=== PATIENT | male | born 1965 | race Caucasian/White ===

== ENCOUNTER 2019-06-01 21:52 | Observation (INO) ==
[2019-06-02] MEDS ORDERED: Naloxone 0.4 MG/ML INJ IVP PRN (01:54)
[2019-06-02 02:50] LABS: Hematocrit 30.4 % (37.5-50.1); Mean Corpuscular HGB Conc 36.2 g/dL (31.6-35.5); Mean Corpuscular Hemoglobin 33.3 pg (28.0-33.3); Mean Corpuscular Volume 92.1 fL (83.0-100.0); Mean Platelet Volume 10.8 fL (9.4-12.4); Platelet Count 256 K/mcL (140-400); White Blood Count 10.9 K/mcL (4.3-11.1)
[2019-06-02 02:54] LABS: INR 1.1; Prothrombin Time 12.8 Seconds (9.4-12.1)
[2019-06-02 02:57] LABS: Activated Partial Thrombo Time 28.8 Seconds (26.0-36.0)
[2019-06-02 03:08] LABS: BUN/Creatinine Ratio 14 (6-26); Blood Urea Nitrogen 11 mg/dL (6-20); Calcium 8.6 mg/dL (8.6-10.3); Carbon Dioxide 26 mEq/L (23-29); Chloride 104 mEq/L (98-107); Glucose 119 mg/dL (70-105); Magnesium 1.8 mg/dL (1.6-2.6); Osmolality,Calculated 285 (280-300); Phosphorous 3.5 mg/dL (2.7-4.5); Sodium 137 mEq/L (136-145); eGFR For African Americans > 60 (> 60); eGFR For Non-African Americans > 60 (> 60)
[2019-06-02] MEDS ORDERED: 0.9 % Sodium Chloride 1,000 ML IVC ONE (03:51)
[2019-06-02] MEDS ORDERED: Pantoprazole 40 MG VIAL IVP SCH (06:30)
[2019-06-02] MEDS: Nicotine 21 MG PATCH.TD24 TD PRN (07:28)
[2019-06-02 09:14] LABS: Hematocrit 27.4 % (37.5-50.1)
[2019-06-02 09:19] LABS: Hemoglobin 9.4 g/dL (12.9-16.9)
[2019-06-02] MEDS: Ringers Solution, Lactated 1,000 ML IVC SCH ×2 (12:36→21:49)
[2019-06-02 16:58] LABS: Hematocrit 28.4 % (37.5-50.1)
[2019-06-02] MEDS ORDERED: SODIUM CHLORIDE/NAHCO3/KCL/PEG 4,000 ML SOLN.RECON PO ONE (17:00)
[2019-06-02] MEDS: Pantoprazole 40 MG VIAL IVP SCH (18:18)
[2019-06-02 21:19] LABS: Hematocrit 26.6 % (37.5-50.1); Hemoglobin 9.4 g/dL (12.9-16.9)
[2019-06-03 05:27] LABS: Basophils % 0.7 %; Eosinophils # 0.1 K/mcL (0.0-0.6); Eosinophils % 2.2 %; Hematocrit 25.4 % (37.5-50.1); Hemoglobin 8.6 g/dL (12.9-16.9); Immature Granulocytes % 0.3 % (0-4); Lymphocytes # 2.2 K/mcL (0.6-4.6); Lymphocytes % 38.1 %; Mean Corpuscular HGB Conc 33.9 g/dL (31.6-35.5); Mean Corpuscular Hemoglobin 33.1 pg (28.0-33.3); Mean Corpuscular Volume 97.7 fL (83.0-100.0); Mean Platelet Volume 10.5 fL (9.4-12.4); Monocytes # 0.5 K/mcL (0.0-1.3); Neutrophils # 2.9 K/mcL (1.6-8.9); Platelet Count 194 K/mcL (140-400); Red Cell Distribution Width 12.3 % (11.5-14.5); Segmented Neutrophils % 49.7 %; White Blood Count 5.8 K/mcL (4.3-11.1)
[2019-06-03] MEDS: Pantoprazole 40 MG VIAL IVP SCH (05:44)
[2019-06-03] MEDS ORDERED: *HR* FentaNYL (PF) 100 MCG/2 ML VIAL ONE (07:14)
[2019-06-03] MEDS ORDERED: *HR* Midazolam HCl 5 MG/5 ML VIAL IVP ONE ×2 (07:14→07:49)
[2019-06-03] MEDS ORDERED: *HR* FentaNYL (PF) 100 MCG/2 ML VIAL IVP ONE (07:49)
[2019-06-03] MEDS: Nicotine 21 MG PATCH.TD24 TD PRN (08:53)
[2019-06-03 15:37] LABS: Hematocrit 28.5 % (37.5-50.1); Hemoglobin 9.6 g/dL (12.9-16.9)
[2019-06-03 16:10] VITALS: BP 165/88
== END 2019-06-03 17:15 | disposition home or self-care (01) ==
LOC: 3ANU → SUATTDRO 23:14
PROVIDERS: ADMIT Internal Medicine; ATTEND Internal Medicine
PROC: ENDOCBX (2019-06-03 13:50)